=== PATIENT | female | born 2000 | race Caucasian/White ===

== ENCOUNTER 2022-09-22 23:57 | Emergency (ER) | payer BC ==
[~2022-09-22] VITALS: Ht 170.2 cm; Wt 105.7 kg
[2022-09-23 00:04] VITALS: BP 146/93
--- NOTE | 2022-09-23 00:21 | ED EENT ---
History of Present Illness General Chief Complaint: Oral/Throat Problems Stated Complaint: FEVER/HEADACHE Nursing Triage Note: PT AMB TO ED BY POV WITH C/O SANFORD AND FEVER. PT REPORTS SHE WAS PRESCRIBED AMOXICILLIN TODAY AT [facility] AFTER TESTING POSITIVE FOR STREP. PT REPORT SHE NOW HAS SANFORD AND TEMPERATURE OF 99.2 AND BELIEVED THEY WERE SIDE EFFECTS OF THE MEDICATION AND THOUGHT SHE NEEDED TO BE SEEN AT ED FOR EVALUATION OF THE SIDE EFFECTS. PT DENIES SOB. PT HAS NOT TAKEN ANY FEVER REDUCERS. Past Fqrzxnm-Rstvoy-Torsiv Hx Patient Social History Tobacco Use?: No Use of E-Cig and/or Vaping dev: No Substance use?: No Alcohol Use?: Yes Alcohol Frequency: Once in a while Pt feels they are or have been: No Immunizations Up To Date Influenza Vaccine Up-to-Date: Yes; Up-to-Date First/Initial COVID19 Vaccinat: X3 Past Medical History Surgery/Hospitalization HX: DENIES Physical Exam Vital Signs Vital Signs - First Documented 09/23/22 00:04 Temp 37.2 Pulse 108 Resp 18 B/P (MAP) 146/93 (110) Pulse Ox 98 O2 Delivery Room Air Height, Weight, BMI Height: '" Weight: lbs. oz. kg; 36.00 BMI Method: Progress/Results/Core Measures Results/Orders Vital Signs/I&O 09/23/22 00:04 Temp 37.2 Pulse 108 Resp 18 B/P (MAP) 146/93 (110) Pulse Ox 98 O2 Delivery Room Air Blood Pressure Mean: 110 Departure Impression Primary Impression: Strep pharyngitis Disposition: 01 HOME, SELF-CARE Condition: Stable Departure-Patient Inst. Decision time for Depature: 00:19 Referrals: [facility] (PCP/Family) Primary Care Physician Patient Instructions: Strep Throat ED Add. Discharge Instructions: INCREASE YOUR AMOXIL TO 500 MG THREE TIMES A DAY FREQUENT SALT WATER GARGLES YOU MAY TAKE TYLENOL 1 GRAM 4 TIMES A DAY, PLUS MOTRIN 800 MG 4 TIMES A DAY FOR PAIN OR FEVER OVER 101 LOTS OF CLEAR LIQUIDS--WATER, BROTH, JELLO, GATORADE FOLLOW UP WITH [facility] IN 3-4 DAYS IF NO IMPROVEMENT All discharge instructions reviewed with patient and/or family. Voiced underst anding. ERNST MENG DO Sep 23, 2022 00:21
== END 2022-09-23 00:35 | disposition home or self-care (01) ==
LOC: EDUNIT# 23:57 → ER 09-23 00:01
DX: J02.0 Streptococcal pharyngitis (principal)
CPT/HCPCS: 99283